=== PATIENT | female | born 1935 | race Caucasian/White ===

== ENCOUNTER 2022-07-22 12:34 | Outpatient (CLI) | payer MEDICARE, SELFPAY | END 2022-07-22 12:35 | disposition home or self-care (01) | PROVIDERS: PCP Family Medicine; Visit Provider Nurse Practitioner Family | DX: T23.321A Burn of third degree of single right finger (nail) except thumb, initial encounter (principal); X10.2XXA Contact with fats and cooking oils, initial encounter; Y93.G3 Activity, cooking and baking | CPT/HCPCS: 16020; 99202 ==

== ENCOUNTER 2024-01-06 09:38 | Outpatient (CLI) | payer MEDICARE, SELFPAY | END 2024-01-06 09:39 | disposition home or self-care (01) | LOC: WOUND 09:39 | PROVIDERS: PCP Family Medicine; Visit Provider Surgery | DX: T23.222A Burn of second degree of single left finger (nail) except thumb, initial encounter (principal); X15.3XXA Contact with hot saucepan or skillet, initial encounter; Y93.G3 Activity, cooking and baking | CPT/HCPCS: 97597; G0463 ==

== ENCOUNTER 2024-01-13 09:25 | Outpatient (CLI) | payer MEDICARE, SELFPAY | END 2024-01-13 09:26 | disposition home or self-care (01) | LOC: WOUND 09:25 | PROVIDERS: PCP Family Medicine; Visit Provider Surgery | DX: T23.222A Burn of second degree of single left finger (nail) except thumb, initial encounter (principal); X15.3XXA Contact with hot saucepan or skillet, initial encounter; Y93.G3 Activity, cooking and baking | CPT/HCPCS: G0463 ==